=== PATIENT | female | born 1985 | race African-American/Black ===

== ENCOUNTER 2024-09-02 06:20 | Emergency (ER) | payer OTHER ==
[2024-09-02 06:53] VITALS: BMI 34.9
[2024-09-02 08:33] LABS: PROTHROMBIN TIME (PATIENT) 11.5 SEC (9.7-13.0)
[2024-09-02 08:36] LABS: ACTIVATED PTT 25.2 SECONDS (25.2-36.5)
[2024-09-02 08:40] LABS: URINE APPEARANCE CLEAR; URINE BILIRUBIN NEGATIVE (NEGATIVE); URINE COLOR YELLOW; URINE GLUCOSE (UA) NEGATIVE (NEGATIVE); URINE KETONE NEGATIVE (NEGATIVE); URINE LEUK ESTERASE NEGATIVE (NEGATIVE); URINE NITRITE NEGATIVE (NEGATIVE); URINE PROTEIN NEGATIVE (NEGATIVE); URINE UROBILINOGEN 0.2 mg/dL (0.2-1.0)
[2024-09-02 08:43] LABS: BASO % 0.7 % (0-2.0); EOS % 0.8 % (0-4.5); HEMATOCRIT 31.1 % (32.4-45.2); HEMOGLOBIN 9.7 GM/dL (10.7-15.3); LYMPH % 34.4 % (8-40); MCH 23.6 pg (25.7-33.7); MCHC 31.2 g/dl (32.0-36.0); MEAN CELL VOLUME 75.5 fl (80-96); MEAN PLT VOLUME 8.6 fl (7.5-11.1); MONO % 9.6 % (3.8-10.2); NEUT % 54.5 % (42.8-82.8); PLATELET COUNT 263 10^3/uL (134-434); RBC 4.12 M/mm3 (3.60-5.2); RDW 14.3 % (11.6-15.6); WHITE BLOOD COUNT 8.6 K/mm3 (4.0-10.0)
[2024-09-02 08:44] LABS: POTASSIUM 4.6 mmol/L (3.5-5.1)
[2024-09-02 08:46] LABS: ALBUMIN 3.3 g/dl (3.4-5.0); BLOOD UREA NITROGEN 8.3 mg/dL (7-18)
[2024-09-02 08:50] LABS: CREATININE 0.5 mg/dL (0.55-1.3)
[2024-09-02 08:51] LABS: BILIRUBIN,TOTAL 0.4 mg/dL (0.2-1); TOT PROT 6.9 g/dl (6.4-8.2)
[2024-09-02] MEDS ORDERED: CARVEDILOL 25 MG TABLET (FP) ONE (11:08)
[2024-09-02] MEDS: CARVEDILOL 12.5 MG TABLET (FP) PO ONE (11:12)
[2024-09-02] MEDS: LOSARTAN 50MG/HCTZ 12.5MG 1 TAB PO ONE (11:24)
[2024-09-02 11:26] VITALS: BP 189/90; PULSE 90; RESP 16; TEMP 98.2
== END 2024-09-02 11:35 | disposition home or self-care (01) ==
LOC: JER 06:20
DX: E05.90 Thyrotoxicosis, unspecified without thyrotoxic crisis or storm (principal); I10 Essential (primary) hypertension; R00.0 Tachycardia, unspecified
CPT/HCPCS: 36415; 70450-TC; 71046-TC-FY; 80053; 81003; 84439; 84443; 84481; 84484; 84703; 85025; 85610; 85730; 86850; 86900; 86901; 87086; 93005; 93010; 99285-25